=== PATIENT | female | born 1955 | race Caucasian/White ===

== ENCOUNTER 2023-03-25 10:36 | Emergency (ER) | payer OTHER ==
[2023-03-25] MEDS ORDERED: HYDROcodone/Acetaminophen 10/325 mg Tablet ONE (11:47)
== END 2023-03-25 12:50 | disposition home or self-care (01) ==
LOC: CSHERS 10:36
DX: M54.50 Low back pain, unspecified (principal)
CPT/HCPCS: 72131; 72192

== ENCOUNTER 2023-08-04 13:02 | Inpatient (IN) | payer MEDICARE, MEDICAID ==
[2023-08-04] MEDS ORDERED: HYDROcodone/Acetaminophen 5/325 mg Tablet ONE (13:55)
[2023-08-04 14:14] LABS: #Eosinphils 0.1 10x3/uL (0.0-0.5); #Monocytes 0.9 10x3/uL (0.0-1.1); #Neutrophils 7.9 10x3/uL (1.5-8.4); %Basophils 0.2 % (0.0-2.0); %Eosinophils 0.6 % (0.0-6.0); %Lymphocytes 17.5 % (18.0-47.0); %Monocytes 7.9 % (0.0-10.0); %Neutrophils 73.2 % (40.0-75.0); Hematocrit 28.4 % (34.9-44.5); Hemoglobin 9.3 g/dL (12.0-15.5); Mean Corpuscular HGB CONC 32.7 g/dL (32.0-36.0); Mean Corpuscular Hemoglobin 32.7 pg (27.0-33.0); Mean Platelet Volume 10.2 fl (7.4-10.4); Platelet Count 211 10x3/uL (150-450); RBC Distribution Width 14.4 % (11.5-14.5); Red Blood Cell (RBC) Count 2.84 10x6/uL (3.90-5.03); White Blood Cell (WBC) Count 10.8 10x3/uL (3.5-10.5)
[2023-08-04 14:38] LABS: ALT (SGPT) 8 U/L (8-55); AST (SGOT) 21 U/L (5-34); Albumin 2.7 g/dL (3.4-4.8); Alkaline Phosphatase 67 U/L (40-110); BUN (Urea Nitrogen) 24 mg/dL (9.8-20.1); Bilirubin, Total 0.6 mg/dL (0.2-1.2); Calc. Creatinine Clearance 0 mL/min (70-130); Calcium 7.8 mg/dL (7.8-10.44); Estimated GFR 85; Globulin 3.3 g/dL (2.4-3.5); Glucose 118 mg/dL (80-115)
[2023-08-04 14:45] LABS: Anion Gap 16 mmol/L (10-20); Carbon Dioxide 31 mmol/L (23-31); Chloride 97 mmol/L (98-107); Sodium 142 mmol/L (136-145)
[2023-08-04 14:51] LABS: Critical Call Chemistry NUR.DB11 AT 1451; Potassium 2.1 mmol/L (3.5-5.1)
[2023-08-04 15:34] LABS: Magnesium 1.6 mg/dL (1.6-2.6)
[2023-08-04] MEDS ORDERED: Potassium Chloride 20 MEQ TAB ONE (15:37)
[2023-08-04] MEDS ORDERED: Potassium Chloride 20 MEQ (100 mL) BAG ONE (15:37)
[2023-08-04] MEDS ORDERED: NS 0.9% w/ 40 MEQ KCL 1,000 ML IV SCH (17:15)
[2023-08-04] MEDS ORDERED: Magnesium 2 GM/50 ML BAG (IN WATER) ONE (17:35)
[2023-08-04 17:54] LABS: Lactic Acid 1.5 mmol/L (0.5-2.2)
[2023-08-04 18:12] LABS: Troponin I 0.353 ng/mL (< 0.028)
[2023-08-04 18:19] LABS: Thyroid Stimulating Hormone 1.1667 uIU/mL (0.35-4.94)
[2023-08-04] MEDS ORDERED: Aspirin 325 MG TAB ONE (18:28)
[2023-08-04] MEDS ORDERED: Aspirin 325 mg Enteric Coated Tablet PO SCH (18:30)
[2023-08-04] MEDS ORDERED: HYDROcodone/Acetaminophen 10/325 mg Tablet PO SCH (20:00)
[2023-08-04] MEDS ORDERED: Acetaminophen 650 MG Suppository PR PRN (20:06)
[2023-08-04] MEDS ORDERED: Senokot S 8.6-50 MG TAB PO PRN (20:06)
[2023-08-04] MEDS ORDERED: Ondansetron ODT 4 MG TAB PO PRN (20:06)
[2023-08-04] MEDS ORDERED: Acetaminophen 325 MG TAB PO PRN (20:06)
[2023-08-04] MEDS ORDERED: Bisacodyl 5 MG TAB PO PRN (20:06)
[2023-08-04] MEDS ORDERED: Ondansetron PF 4 MG/2 ML Vial IVP PRN (20:06)
[2023-08-04] MEDS ORDERED: Electrolyte Replacement Protocol 1 EACH FS SCH (20:15)
[2023-08-04] MEDS ORDERED: Lorazepam 2 MG/ML VIAL SLOW IVP PRN (20:25)
[2023-08-04] MEDS ORDERED: Potassium Chloride 20 MEQ TAB PO SCH (20:30)
[2023-08-04] MEDS ORDERED: PHENobarbital 32.4 MG TAB PO SCH (21:00)
[2023-08-04] MEDS ORDERED: tiZANidine HCl 4 MG TAB PO SCH (21:00)
[2023-08-04] MEDS ORDERED: cefTRIAXone\\ROCEPHIN 1 GM in Sodium Chloride 0.9% 100 ML IVPB SCH (21:00)
[2023-08-04 21:09] LABS: Magnesium 1.7 mg/dL (1.6-2.6); Phosphorus 2.4 mg/dL (2.3-4.7)
[2023-08-04 21:14] LABS: Critical Call Chem Troponin I NUR.SR7 AT 2114; Troponin I 0.693 ng/mL (< 0.028)
[2023-08-04] MEDS ORDERED: Magnesium 2 GM/50 ML(in water) 2 GM in Premix 1 BAG IVPB SCH (21:45)
[2023-08-04] MEDS: Meloxicam 7.5 MG TAB PO SCH (21:56)
[2023-08-04] MEDS: Montelukast Sodium 10 mg Tablet PO SCH (21:57)
[2023-08-04] MEDS: Potassium Chloride 20 MEQ in Premix 1 BAG IVPB SCH (22:06)
[2023-08-04 22:11] LABS: Bilirubin Neg (Negative); Blood, Urine 250 (Negative); Clarity Cloudy (Clear); Glucose, Urine (Dipstick) Normal (Negative); Ketone, Urine 5 mg/dL (Negative); Leukocyte 500 (Negative); Nitrite Positive (Negative); Protein, Urine (Dipstick) 30 mg/dl (Neg-Trace); Specific Gravity, Urine 1.015 (1.005-1.030)
[2023-08-04 22:37] LABS: Bacteria/HPF 2+ HPF (None Seen); Squamous Epithelial 0-3 HPF (0-3); WBC/HPF Greater than 50 HPF (0-3)
[2023-08-04 23:35] LABS: Potassium 2.8 mmol/L (3.5-5.1)
[2023-08-04] MEDS ORDERED: NOREPINEPHRINE 8 MG/250 ML-D5W 250 ML ONE (23:43)
[2023-08-04 23:52] LABS: Troponin I 0.794 ng/mL (< 0.028)
[2023-08-05 00:17] LABS: #Eosinphils 0.1 10x3/uL (0.0-0.5); #Monocytes 0.9 10x3/uL (0.0-1.1); #Neutrophils 8.4 10x3/uL (1.5-8.4); %Basophils 0.3 % (0.0-2.0); %Eosinophils 0.5 % (0.0-6.0); %Lymphocytes 16.8 % (18.0-47.0); %Monocytes 8.1 % (0.0-10.0); %Neutrophils 73.7 % (40.0-75.0); Mean Corpuscular HGB CONC 33.3 g/dL (32.0-36.0); Mean Corpuscular Hemoglobin 33.6 pg (27.0-33.0); Mean Corpuscular Volume 100.8 fl (81.6-98.3); Mean Platelet Volume 11.1 fl (7.4-10.4); Platelet Count 176 10x3/uL (150-450); RBC Distribution Width 14.5 % (11.5-14.5); Red Blood Cell (RBC) Count 2.38 10x6/uL (3.90-5.03); White Blood Cell (WBC) Count 11.4 10x3/uL (3.5-10.5)
[2023-08-05 00:25] LABS: Anion Gap 12 mmol/L (10-20); BUN (Urea Nitrogen) 22 mg/dL (9.8-20.1); Calc. Creatinine Clearance 0 mL/min (70-130); Calcium 7.2 mg/dL (7.8-10.44); Carbon Dioxide 30 mmol/L (23-31); Chloride 103 mmol/L (98-107); Estimated GFR 94; Glucose 121 mg/dL (80-115); Potassium 3.1 mmol/L (3.5-5.1); Sodium 142 mmol/L (136-145)
[2023-08-05] MEDS ORDERED: Dextrose 5% in Water 1,000 ML IV PRN (00:31)
[2023-08-05] MEDS ORDERED: Dextrose 50% Abboject 50 ML SYRINGE SLOW IVP PRN (00:31)
[2023-08-05] MEDS ORDERED: HumaLOG 300 UNITS/3 ML VIAL SC PRN ×2 (00:31)
[2023-08-05] MEDS ORDERED: Glucagon 1 MG/ML KIT IM PRN (00:31)
[2023-08-05] MEDS ORDERED: Piperacillin/Tazobactam 3.375 GM in Sodium Chloride 0.9% 100 ML IVPB SCH (00:45)
[2023-08-05 01:00] VITALS: BMI 22.6
[2023-08-05] MEDS ORDERED: NOREPINEPHRINE 8 MG/250 ML-D5W 250 ML IVPB SCH (01:15)
[2023-08-05] MEDS: Potassium Chloride 20 MEQ in Premix 1 BAG IVPB SCH ×3 (01:38→07:51)
[2023-08-05] MEDS ORDERED: Potassium Chloride 20 MEQ in Premix 1 BAG IVPB SCH (01:45)
[2023-08-05] MEDS ORDERED: Magnesium 2 GM/50 ML(in water) 2 GM in Premix 1 BAG IVPB SCH (01:45)
[2023-08-05 03:43] LABS: #Eosinphils 0.1 10x3/uL (0.0-0.5); #Monocytes 0.9 10x3/uL (0.0-1.1); %Basophils 0.3 % (0.0-2.0); %Lymphocytes 21.2 % (18.0-47.0); %Monocytes 9.2 % (0.0-10.0); %Neutrophils 67.8 % (40.0-75.0); Hematocrit 28.3 % (34.9-44.5); Hemoglobin 9.1 g/dL (12.0-15.5); Mean Corpuscular HGB CONC 32.2 g/dL (32.0-36.0); Mean Corpuscular Volume 99.6 fl (81.6-98.3); Mean Platelet Volume 10.6 fl (7.4-10.4); Platelet Count 226 10x3/uL (150-450); RBC Distribution Width 14.4 % (11.5-14.5); Red Blood Cell (RBC) Count 2.84 10x6/uL (3.90-5.03); White Blood Cell (WBC) Count 10.3 10x3/uL (3.5-10.5)
[2023-08-05 03:57] LABS: Anion Gap 13 mmol/L (10-20); BUN (Urea Nitrogen) 21 mg/dL (9.8-20.1); Calc. Creatinine Clearance 71 mL/min (70-130); Calcium 7.7 mg/dL (7.8-10.44); Carbon Dioxide 29 mmol/L (23-31); Chloride 103 mmol/L (98-107); Estimated GFR 96; Glucose 130 mg/dL (80-115); Magnesium 2.3 mg/dL (1.6-2.6); Potassium 3.2 mmol/L (3.5-5.1); Sodium 142 mmol/L (136-145)
[2023-08-05] MEDS: Gabapentin 100 MG CAP PO SCH ×4 (05:13→18:18)
[2023-08-05] MEDS: Piperacillin/Tazobactam 3.375 GM in Sodium Chloride 0.9% 100 ML IVPB SCH ×3 (05:15→21:04)
[2023-08-05] MEDS: HYDROcodone/Acetaminophen 5/325 mg Tablet PO PRN ×3 (06:12→18:19)
[2023-08-05] MEDS: Enoxaparin 40 MG (0.4 mL) SYRINGE SC SCH (07:50)
[2023-08-05] MEDS: tiZANidine HCl 4 MG TAB PO SCH ×2 (08:21→20:02)
[2023-08-05] MEDS: Zolpidem Tartrate 5 MG TAB PO PRN (20:02)
[2023-08-05] MEDS: Montelukast Sodium 10 mg Tablet PO SCH (20:02)
[2023-08-05] MEDS: Meloxicam 7.5 MG TAB PO SCH (20:02)
[2023-08-05] MEDS: PHENobarbital Sodium 65 MG/ML VIAL SLOW IVP SCH (20:09)
[2023-08-06 04:08] LABS: #Eosinphils 0.3 10x3/uL (0.0-0.5); #Monocytes 0.6 10x3/uL (0.0-1.1); #Neutrophils 3.4 10x3/uL (1.5-8.4); %Basophils 0.3 % (0.0-2.0); %Eosinophils 4.4 % (0.0-6.0); %Lymphocytes 26.5 % (18.0-47.0); %Monocytes 10.5 % (0.0-10.0); %Neutrophils 57.8 % (40.0-75.0); Hematocrit 25.3 % (34.9-44.5); Hemoglobin 8.3 g/dL (12.0-15.5); Mean Corpuscular HGB CONC 32.8 g/dL (32.0-36.0); Mean Corpuscular Hemoglobin 32.3 pg (27.0-33.0); Mean Corpuscular Volume 98.4 fl (81.6-98.3); Mean Platelet Volume 10.8 fl (7.4-10.4); Platelet Count 209 10x3/uL (150-450); RBC Distribution Width 14.2 % (11.5-14.5); Red Blood Cell (RBC) Count 2.57 10x6/uL (3.90-5.03); White Blood Cell (WBC) Count 5.9 10x3/uL (3.5-10.5)
[2023-08-06 04:16] LABS: Anion Gap 12 mmol/L (10-20); BUN (Urea Nitrogen) 16 mg/dL (9.8-20.1); Calc. Creatinine Clearance 81 mL/min (70-130); Carbon Dioxide 28 mmol/L (23-31); Chloride 105 mmol/L (98-107); Estimated GFR 99; Glucose 108 mg/dL (80-115); Potassium 4.1 mmol/L (3.5-5.1); Sodium 141 mmol/L (136-145)
[2023-08-06] MEDS: HYDROcodone/Acetaminophen 5/325 mg Tablet PO PRN ×4 (04:22→18:07)
[2023-08-06] MEDS: Gabapentin 100 MG CAP PO SCH ×3 (05:20→18:07)
[2023-08-06] MEDS: Piperacillin/Tazobactam 3.375 GM in Sodium Chloride 0.9% 100 ML IVPB SCH ×3 (05:21→23:09)
[2023-08-06] MEDS: Enoxaparin 40 MG (0.4 mL) SYRINGE SC SCH (08:02)
[2023-08-06] MEDS: tiZANidine HCl 4 MG TAB PO SCH ×2 (08:03→20:45)
[2023-08-06] MEDS: PHENobarbital Sodium 65 MG/ML VIAL SLOW IVP SCH ×2 (08:14→20:47)
[2023-08-06] MEDS: Montelukast Sodium 10 mg Tablet PO SCH (20:45)
[2023-08-06] MEDS: Meloxicam 7.5 MG TAB PO SCH (20:46)
[2023-08-06] MEDS: Zolpidem Tartrate 5 MG TAB PO PRN (21:02)
[2023-08-07] MEDS: HYDROcodone/Acetaminophen 5/325 mg Tablet PO PRN ×4 (00:58→22:02)
[2023-08-07 05:18] LABS: #Eosinphils 0.2 10x3/uL (0.0-0.5); #Monocytes 0.8 10x3/uL (0.0-1.1); #Neutrophils 2.6 10x3/uL (1.5-8.4); %Basophils 0.5 % (0.0-2.0); %Eosinophils 3.3 % (0.0-6.0); %Lymphocytes 40.3 % (18.0-47.0); %Monocytes 12.4 % (0.0-10.0); %Neutrophils 43.2 % (40.0-75.0); Hematocrit 25.9 % (34.9-44.5); Hemoglobin 8.8 g/dL (12.0-15.5); Mean Corpuscular Hemoglobin 33.1 pg (27.0-33.0); Mean Corpuscular Volume 97.4 fl (81.6-98.3); Mean Platelet Volume 10.9 fl (7.4-10.4); Platelet Count 229 10x3/uL (150-450); RBC Distribution Width 13.8 % (11.5-14.5); Red Blood Cell (RBC) Count 2.66 10x6/uL (3.90-5.03)
[2023-08-07 05:36] LABS: Anion Gap 14 mmol/L (10-20); BUN (Urea Nitrogen) 14 mg/dL (9.8-20.1); Calc. Creatinine Clearance 86 mL/min (70-130); Carbon Dioxide 26 mmol/L (23-31); Chloride 103 mmol/L (98-107); Estimated GFR 99; Glucose 97 mg/dL (80-115); Potassium 3.9 mmol/L (3.5-5.1); Sodium 139 mmol/L (136-145)
[2023-08-07] MEDS: Gabapentin 100 MG CAP PO SCH ×3 (05:39→18:23)
[2023-08-07] MEDS: Piperacillin/Tazobactam 3.375 GM in Sodium Chloride 0.9% 100 ML IVPB SCH ×3 (05:40→21:52)
[2023-08-07] MEDS: tiZANidine HCl 4 MG TAB PO SCH ×2 (09:08→21:49)
[2023-08-07] MEDS: Enoxaparin 40 MG (0.4 mL) SYRINGE SC SCH (09:15)
[2023-08-07] MEDS: QUEtiapine 25 MG TAB PO SCH ×2 (09:15→21:49)
[2023-08-07] MEDS: PHENobarbital Sodium 65 MG/ML VIAL SLOW IVP SCH ×2 (09:49→21:52)
[2023-08-07] MEDS: Montelukast Sodium 10 mg Tablet PO SCH (21:49)
[2023-08-07] MEDS: Meloxicam 7.5 MG TAB PO SCH (21:50)
[2023-08-08] MEDS: HYDROcodone/Acetaminophen 5/325 mg Tablet PO PRN ×3 (04:18→22:20)
[2023-08-08 04:31] LABS: #Eosinphils 0.2 10x3/uL (0.0-0.5); #Monocytes 0.7 10x3/uL (0.0-1.1); #Neutrophils 1.6 10x3/uL (1.5-8.4); %Basophils 0.7 % (0.0-2.0); %Eosinophils 4.4 % (0.0-6.0); %Monocytes 16.4 % (0.0-10.0); %Neutrophils 36.3 % (40.0-75.0); Hematocrit 26.5 % (34.9-44.5); Hemoglobin 8.9 g/dL (12.0-15.5); Mean Corpuscular HGB CONC 33.6 g/dL (32.0-36.0); Mean Corpuscular Hemoglobin 32.1 pg (27.0-33.0); Mean Corpuscular Volume 95.7 fl (81.6-98.3); Mean Platelet Volume 10.6 fl (7.4-10.4); Platelet Count 245 10x3/uL (150-450); RBC Distribution Width 13.5 % (11.5-14.5); Red Blood Cell (RBC) Count 2.77 10x6/uL (3.90-5.03); White Blood Cell (WBC) Count 4.3 10x3/uL (3.5-10.5)
[2023-08-08 04:40] LABS: Anion Gap 12 mmol/L (10-20); BUN (Urea Nitrogen) 9 mg/dL (9.8-20.1); Calc. Creatinine Clearance 82 mL/min (70-130); Calcium 7.7 mg/dL (7.8-10.44); Carbon Dioxide 27 mmol/L (23-31); Chloride 104 mmol/L (98-107); Estimated GFR 99; Glucose 101 mg/dL (80-115); Potassium 3.4 mmol/L (3.5-5.1); Sodium 140 mmol/L (136-145)
[2023-08-08] MEDS: Gabapentin 100 MG CAP PO SCH ×3 (07:03→18:43)
[2023-08-08] MEDS: Piperacillin/Tazobactam 3.375 GM in Sodium Chloride 0.9% 100 ML IVPB SCH ×3 (07:03→21:43)
[2023-08-08] MEDS ORDERED: Potassium Chloride 20 MEQ TAB PO SCH (08:00)
[2023-08-08] MEDS: tiZANidine HCl 4 MG TAB PO SCH ×2 (10:25→21:40)
[2023-08-08] MEDS: Enoxaparin 40 MG (0.4 mL) SYRINGE SC SCH (10:26)
[2023-08-08] MEDS: PHENobarbital Sodium 65 MG/ML VIAL SLOW IVP SCH (10:30)
[2023-08-08] MEDS ORDERED: QUEtiapine 25 MG TAB PO SCH (21:00)
[2023-08-08] MEDS ORDERED: PHENobarbital 32.4 MG TAB PO SCH (21:00)
[2023-08-08] MEDS: Montelukast Sodium 10 mg Tablet PO SCH (21:40)
[2023-08-08] MEDS: PHENobarbital 32.4 MG TAB PO SCH (21:42)
[2023-08-08] MEDS: Meloxicam 7.5 MG TAB PO SCH (21:43)
[2023-08-09] MEDS: Piperacillin/Tazobactam 3.375 GM in Sodium Chloride 0.9% 100 ML IVPB SCH ×2 (04:09→15:19)
[2023-08-09] MEDS: HYDROcodone/Acetaminophen 5/325 mg Tablet PO PRN ×3 (04:10→18:22)
[2023-08-09] MEDS: Gabapentin 100 MG CAP PO SCH ×3 (04:11→17:44)
[2023-08-09] MEDS ORDERED: Loperamide HCl 2 MG CAP PO SCH ×2 (05:45→17:45)
[2023-08-09 05:55] LABS: Anion Gap 13 mmol/L (10-20); BUN (Urea Nitrogen) 6 mg/dL (9.8-20.1); Calc. Creatinine Clearance 84 mL/min (70-130); Carbon Dioxide 26 mmol/L (23-31); Chloride 103 mmol/L (98-107); Estimated GFR 100; Glucose 103 mg/dL (80-115); Potassium 3.6 mmol/L (3.5-5.1); Sodium 138 mmol/L (136-145)
[2023-08-09 05:59] LABS: #Eosinphils 0.3 10x3/uL (0.0-0.5); #Monocytes 0.8 10x3/uL (0.0-1.1); #Neutrophils 1.7 10x3/uL (1.5-8.4); %Basophils 0.9 % (0.0-2.0); %Eosinophils 6.6 % (0.0-6.0); %Lymphocytes 40.6 % (18.0-47.0); %Neutrophils 35.7 % (40.0-75.0); Hematocrit 28.3 % (34.9-44.5); Hemoglobin 9.4 g/dL (12.0-15.5); Mean Corpuscular HGB CONC 33.2 g/dL (32.0-36.0); Mean Corpuscular Hemoglobin 32.5 pg (27.0-33.0); Mean Corpuscular Volume 97.9 fl (81.6-98.3); Mean Platelet Volume 10.8 fl (7.4-10.4); Platelet Count 266 10x3/uL (150-450); RBC Distribution Width 13.4 % (11.5-14.5); Red Blood Cell (RBC) Count 2.89 10x6/uL (3.90-5.03); White Blood Cell (WBC) Count 4.7 10x3/uL (3.5-10.5)
[2023-08-09] MEDS: tiZANidine HCl 4 MG TAB PO SCH (08:45)
[2023-08-09] MEDS: PHENobarbital 32.4 MG TAB PO SCH (08:45)
[2023-08-09] MEDS: Enoxaparin 40 MG (0.4 mL) SYRINGE SC SCH (08:46)
[2023-08-09 17:19] VITALS: BP 138/94; TEMP 97.5
== END 2023-08-09 19:00 | DRG 871 ==
LOC: CSHERS 13:02 → CSHTELE 17:49 → OBSVTOIN 20:35 → CSHICU 08-05 00:20 → CSHTELE 08-06 19:54
PROVIDERS: ADMIT Internal Medicine; ATTEND Family Medicine
PROC: 3E03329 Introduction of Other Anti-infective into Peripheral Vein, Percutaneous Approach (ICD-10-PCS; principal; 2023-08-04)
PROC: 3E033XZ Introduction of Vasopressor into Peripheral Vein, Percutaneous Approach (ICD-10-PCS; 2023-08-04)
DX: A41.51 Sepsis due to Escherichia coli [E. coli] (principal); G93.41 Metabolic encephalopathy; R65.21 Severe sepsis with septic shock; I21.A1 Myocardial infarction type 2; G40.119 Localization-related (focal) (partial) symptomatic epilepsy and epileptic syndromes with simple partial seizures, intractable, without status epilepticus; G91.2 (Idiopathic) normal pressure hydrocephalus; N39.0 Urinary tract infection, site not specified; G62.9 Polyneuropathy, unspecified; E87.6 Hypokalemia; R77.8 Other specified abnormalities of plasma proteins; R53.1 Weakness; R53.81 Other malaise; G89.29 Other chronic pain; Z90.49 Acquired absence of other specified parts of digestive tract; Z90.710 Acquired absence of both cervix and uterus; Z86.73 Personal history of transient ischemic attack (TIA), and cerebral infarction without residual deficits; Z79.899 Other long term (current) drug therapy; Z98.890 Other specified postprocedural states; Z88.8 Allergy status to other drugs, medicaments and biological substances; Z79.51 Long term (current) use of inhaled steroids
CPT/HCPCS: 36415; 36416; 70450; 70553; 71045; 80048; 80053; 81001; 82533; 82607; 83605; 83735; 84100; 84145; 84443; 84484; 85025; 87040; 87077; 87086; 87186; 93005; 93010; 93306; 94760; 96365; 96366; 96368; J1650; J2543; J2560; J3475; J3480; J3490